=== PATIENT | male | born 1995 | race Caucasian/White ===

== ENCOUNTER 2022-04-21 18:09 | Emergency (ER) | payer OTHER | END 2022-04-21 21:33 | disposition home or self-care (01) | LOC: JD.ED 18:09 | DX: S02.92XA Unspecified fracture of facial bones, initial encounter for closed fracture (principal); X58.XXXA Exposure to other specified factors, initial encounter | CPT/HCPCS: 70450; 70450-26; 70486; 70486-26; 99284 ==

== ENCOUNTER 2022-04-24 21:10 | Emergency (ER) | payer SELFPAY | END 2022-04-24 22:08 | disposition home or self-care (01) | LOC: JD.ED 21:10 | DX: Z53.21 Procedure and treatment not carried out due to patient leaving prior to being seen by health care provider (principal) ==

== ENCOUNTER 2024-01-11 15:23 | Emergency (ER) | payer OTHER | END 2024-01-11 16:36 | disposition home or self-care (01) | LOC: JD.ED 15:23 | DX: H60.502 Unspecified acute noninfective otitis externa, left ear (principal) | CPT/HCPCS: 99282 ==

== ENCOUNTER 2024-02-08 07:14 | Emergency (ER) | payer OTHER | END 2024-02-08 09:30 | disposition home or self-care (01) | LOC: JD.ED 07:14 | DX: J02.8 Acute pharyngitis due to other specified organisms (principal); F17.210 Nicotine dependence, cigarettes, uncomplicated | CPT/HCPCS: 87651-QW; 99283 ==